=== PATIENT | female | born 2000 | race Caucasian/White ===

== ENCOUNTER 2021-01-21 18:28 | Emergency (ER) | payer OTHER, SELFPAY ==
[2021-01-21 18:35] VITALS: BP 107/69; PULSE 76; RESP 12; TEMP 36.6; O2SAT 99; BMI 21.4
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
[2021-01-21 18:52] VITALS: PULSE 81; O2SAT 100
[2021-01-21 19:00] VITALS: BP 103/65; PULSE 70; O2SAT 100
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
== END 2021-01-21 20:01 | disposition home or self-care (01) ==
PROVIDERS: Emergency Provider Emergency Medicine
DX: M62.838 Other muscle spasm (principal); R51.9 Headache, unspecified; V89.2XXA Person injured in unspecified motor-vehicle accident, traffic, initial encounter
CPT/HCPCS: 70450; 72125; 99284